=== PATIENT | female | born 1985 | race Caucasian/White ===

== ENCOUNTER 2017-08-11 12:28 | Emergency (ER) | payer MEDICARE, MEDICAID ==
[~2017-08-11] VITALS: Ht 154.9 cm; Wt 54.0 kg
[~2017-08-11 12:28] MED LIST: CIPR-213 PO; IBUP-2030 PO; LISI10TA5 PO; NITR100C PO; SULF1TAB48 PO
[2017-08-11 16:48] VITALS: BP 132/74
== END 2017-08-11 16:50 | disposition home or self-care (01) ==
LOC: ER 12:28
DX: L89.329 Pressure ulcer of left buttock, unspecified stage (principal); L89.319 Pressure ulcer of right buttock, unspecified stage; G80.8 Other cerebral palsy; I10 Essential (primary) hypertension; Z88.0 Allergy status to penicillin; Z99.3 Dependence on wheelchair; Z88.6 Allergy status to analgesic agent; Z88.8 Allergy status to other drugs, medicaments and biological substances
CPT/HCPCS: 99281

== ENCOUNTER → 2020-01-07 | Outpatient (CLI) | payer MEDICARE, MEDICAID | END | disposition home or self-care (01) | LOC: US 10:35 | PROVIDERS: ATTEND Urology | DX: N21.0 Calculus in bladder (principal); N31.2 Flaccid neuropathic bladder, not elsewhere classified | CPT/HCPCS: 76770 ==

== ENCOUNTER → 2022-07-05 | Outpatient (CLI) | payer MEDICARE, MEDICAID ==
[~2022-07-05] MED LIST changes: -CIPR-213 PO; +LISI10TA26 PO; -LISI10TA5 PO; -NITR100C PO
== END | disposition home or self-care (01) ==
LOC: US 12:15
PROVIDERS: ATTEND Urology
DX: N26.1 Atrophy of kidney (terminal) (principal); N30.00 Acute cystitis without hematuria
CPT/HCPCS: 76770